=== PATIENT | female | born 1955 | race Caucasian/White ===

== ENCOUNTER → 2017-12-30 | Outpatient (CLI) | payer BC ==
[~2017-12-30] MED LIST: AZIT500 PO; CODGUAEL PO; LORA1 PO; OMEP20ER PO; OXYACE7.5T PO; PROM25S PR; [UNRECOGNIZED DRUG - OTHER]; [UNRECOGNIZED DRUG - REMARK]
== END | disposition home or self-care (01) ==
LOC: LAB EV 10:28 → LAB SHORT 10:28
DX: N39.0 Urinary tract infection, site not specified (principal)
CPT/HCPCS: 87077; 87086; 87186

== ENCOUNTER → 2018-01-24 | Outpatient (CLI) | payer BC | END | disposition home or self-care (01) | LOC: LAB SHORT 07:41 → LAB EV 07:41 | DX: N39.0 Urinary tract infection, site not specified (principal) | CPT/HCPCS: 87086 ==

== ENCOUNTER → 2022-01-08 | Outpatient (CLI) | payer BC | END | disposition home or self-care (01) | LOC: LAB SHORT 17:25 | DX: R31.9 Hematuria, unspecified (principal) | CPT/HCPCS: 87086 ==

== ENCOUNTER → 2025-03-25 | Outpatient (CLI) | payer OTHER | LOC: LAB SHORT 15:06 → LAB 15:06 | DX: N39.0 Urinary tract infection, site not specified (principal) | CPT/HCPCS: 87086 ==